=== PATIENT | male | born 1985 | race Two or more races ===

== ENCOUNTER 2018-05-14 12:16 | Emergency (ER) | payer SELFPAY ==
[~2018-05-14] VITALS: Ht 172.7 cm; Wt 93.0 kg
[2018-05-14] MEDS ORDERED: IV NORMAL SALINE 1000ML BAG 1,000 ML IV ONE (13:00)
[2018-05-14 13:19] LABS: CALCIUM 9.7 mg/dL (8.5-10.1); CREATININE 0.7 mg/dL (0.7-1.3); GFR 129.9; POTASSIUM 3.7 mmol/L (3.5-5.1)
[2018-05-14 13:27] LABS: ALBUMIN 4.6 g/dL (3.4-5.0); ALBUMIN/GLOBULIN RATIO 1.3 (1.0-1.7); TOTAL BILIRUBIN 1.2 mg/dL (0.2-1.0); TOTAL PROTEIN 8.2 g/dL (6.4-8.2)
[2018-05-14 13:32] LABS: BASO % 0 % (0-3); EOS % 0 % (0-3); HEMATOCRIT 49.4 % (39.0-53.0); HEMOGLOBIN 17.3 g/dL (13.0-17.5); LYMPH % 10 % (24-48); MEAN CORPUSCULAR HEMOGLOBIN 29 pg (25-35); MEAN CORPUSCULAR HGB CONC 35 g/dL (31-37); MEAN CORPUSCULAR VOLUME 83 fL (79-100); MONO # 0.8 x10^3/uL (0.0-1.1); MONO % 9 % (0-9); NEUT # 7.5 x10^3uL (1.8-7.7); NEUT % 80 % (31-73); PLATELET COUNT 221 x10^3/uL (140-400); RED BLOOD COUNT 5.98 x10^6/uL (4.30-5.70); RED CELL DISTRIBUTION WIDTH 12.6 % (11.5-14.5); WHITE BLOOD COUNT 9.4 x10^3/uL (4.0-11.0)
--- NOTE | 2018-05-14 14:27 | RAD ---
Testicular ultrasound History: RT GROIN PAIN/SWELLING. Comparison: None. Technique: Multiple grayscale, color flow Doppler and Doppler spectral analysis images of the scrotum are obtained. Findings: Right testicle measures 3.8 x 3.1 x 1.8 cm. Right testicle demonstrates normal parenchymal echogenicity. The right epididymis is unremarkable. Left testicle measures 4.4 x 2.4 x 2.3 cm. Left testicle demonstrates normal parenchymal echogenicity. The left epididymis is unremarkable. Small bilateral hydroceles. There is right varicocele. There is right scrotal skin thickening. There is subcutaneous edema. There is no definite subcutaneous air identified sonographically to suggest Dmitriy gangrene. Doppler imaging demonstrates normal flow to both testicles, without evidence of torsion. IMPRESSION: 1. Right scrotal skin thickening. 2. Right varicocele. 3. Small bilateral hydroceles. 4. No evidence of testicular mass or torsion. Electronically signed by: Brian Martinez MD (05/14/2018 2:23 PM) [id number]
[2018-05-14] MEDS ORDERED: DIPHTH,PERTUSS(ACELL),TET TOX 0.5 ML DISP.SYRIN. VAX IM ONE (14:45)
[2018-05-14] MEDS ORDERED: LIDOCAINE 1% PF 30 ML VIAL. INJ ONE (15:45)
[2018-05-14] MEDS ORDERED: CLIN150C14 PO (16:31)
[2018-05-14] MEDS ORDERED: METF500T16 PO (16:31)
[2018-05-14] MEDS ORDERED: HYDR-971 PO (16:31)
--- NOTE | 2018-05-14 16:32 | PHYS DOC ---
Past Medical History Past Medical History: No Pertinent History Additional Past Medical Histor: Possible diabetes? Additional Past Surgical Histo: L arm surgery Alcohol Use: Occasionally Drug Use: None Adult General Chief Complaint Chief Complaint: ABSCESS HPI HPI Patient is a 33 year old male with no significant medical history who presents today complaining of an abscess on the right groin for one week. Patient states he went to see his own primary care doctor and they checked his blood glucose which was 355, he states he has no previous history of diabetes as the reason he was sent to the ED. Patient denies any fever. Denies any nausea vomiting. Review of Systems Review of Systems Constitutional: Denies fever or chills [] Eyes: Denies change in visual acuity, redness, or eye pain [] HENT: Denies nasal congestion or sore throat [] Respiratory: Denies cough or shortness of breath [] Cardiovascular: No additional information not addressed in HPI [] GI: Denies abdominal pain, nausea, vomiting, bloody stools or diarrhea [] : Denies dysuria or hematuria [] Musculoskeletal: Denies back pain or joint pain [] Integument: Reports Right groin abscess Neurologic: Denies headache, focal weakness or sensory changes [] Endocrine: Reports high blood glucose All other systems were reviewed and found to be within normal limits, except as documented in this note. Current Medications Current Medications Current Medications Medications (Trade) Dose Ordered Sig/Mariella Start Time Stop Time Status Last Admin Dose Admin Ceftriaxone Sodium 50 ml @ 100 mls/hr 1X ONCE 05/14/18 14:45 05/14/18 15:14 DC 05/14/18 14:52 100 MLS/HR Diphtheria/ Tetanus/Acell Pertussis (Boostrix) 0.5 ml ONCE ONCE 05/14/18 14:45 05/14/18 14:46 DC 05/14/18 14:53 0.5 ML Lidocaine HCl (Xylocaine 1% Pf 30ml Vial) 30 ml 1X ONCE 05/14/18 15:45 05/14/18 15:46 DC Sodium Chloride 1,000 ml @ 1,000 mls/hr 1X ONCE 05/14/18 13:00 05/14/18 13:59 DC 05/14/18 13:08 1,000 MLS/HR Allergies Allergies Allergies Coded Allergies Type Severity Reaction Last Updated Verified No Known Drug Allergies 05/14/18 No Physical Exam Physical Exam Constitutional: Well developed, well nourished, no acute distress, non-toxic appearance. [] HENT: Normocephalic, atraumatic, bilateral external ears normal, oropharynx moist, no oral exudates, nose normal. [] Eyes: PERRLA, EOMI, conjunctiva normal, no discharge. [] Neck: Normal range of motion, no tenderness, supple, no stridor. [] Cardiovascular:Heart rate regular rhythm, no murmur [] Lungs & Thorax: Bilateral breath sounds clear to auscultation [] Abdomen: Bowel sounds normal, soft, no tenderness, no masses, no pulsatile masses. [] Skin: Warm, dry, right groin with an area of moderate induration approximately 4 x 3 cm with the cellulitis, the area is warm tender to touch and fluctuant. Back: No tenderness, no CVA tenderness. [] Extremities: No tenderness, no cyanosis, no clubbing, ROM intact, no edema. [] Neurologic: Alert and oriented X 3, normal motor function, normal sensory function, no focal deficits noted. [] Psychologic: Affect normal, judgement normal, mood normal. [] Current Patient Data Vital Signs Vital Signs Date Time Temp Pulse Resp B/P (MAP) Pulse Ox O2 Delivery O2 Flow Rate FiO2 05/14/18 14:53 87 14 129/71 (90) 99 Room Air 05/14/18 12:30 99.7 99.7 Lab Values Laboratory Tests Test 05/14/18 12:35 05/14/18 12:45 Glucose (Fingerstick) 271 mg/dL (70-99) H White Blood Count 9.4 x10^3/uL (4.0-11.0) Red Blood Count 5.98 x10^6/uL (4.30-5.70) H Hemoglobin 17.3 g/dL (13.0-17.5) Hematocrit 49.4 % (39.0-53.0) Mean Corpuscular Volume 83 fL (79-100) Mean Corpuscular Hemoglobin 29 pg (25-35) Mean Corpuscular Hemoglobin Concent 35 g/dL (31-37) Red Cell Distribution Width 12.6 % (11.5-14.5) Platelet Count 221 x10^3/uL (140-400) Neutrophils (%) (Auto) 80 % (31-73) H Lymphocytes (%) (Auto) 10 % (24-48) L Monocytes (%) (Auto) 9 % (0-9) Eosinophils (%) (Auto) 0 % (0-3) Basophils (%) (Auto) 0 % (0-3) Neutrophils # (Auto) 7.5 x10^3uL (1.8-7.7) Lymphocytes # (Auto) 1.0 x10^3/uL (1.0-4.8) Monocytes # (Auto) 0.8 x10^3/uL (0.0-1.1) Eosinophils # (Auto) 0.0 x10^3/uL (0.0-0.7) Basophils # (Auto) 0.0 x10^3/uL (0.0-0.2) Sodium Level 135 mmol/L (136-145) L Potassium Level 3.7 mmol/L (3.5-5.1) Chloride Level 97 mmol/L (98-107) L Carbon Dioxide Level 25 mmol/L (21-32) Anion Gap 13 (6-14) Blood Urea Nitrogen 11 mg/dL (8-26) Creatinine 0.7 mg/dL (0.7-1.3) Estimated GFR (Cockcroft-Gault) 129.9 BUN/Creatinine Ratio 16 (6-20) Glucose Level 285 mg/dL (70-99) H Calcium Level 9.7 mg/dL (8.5-10.1) Total Bilirubin 1.2 mg/dL (0.2-1.0) H Aspartate Amino Transferase (AST) 15 U/L (15-37) Alanine Aminotransferase (ALT) 35 U/L (16-63) Alkaline Phosphatase 146 U/L (46-116) H Total Protein 8.2 g/dL (6.4-8.2) Albumin 4.6 g/dL (3.4-5.0) Albumin/Globulin Ratio 1.3 (1.0-1.7) Laboratory Tests 05/14/18 12:45 Laboratory Tests 05/14/18 12:45 EKG EKG [] Radiology/Procedures Radiology/Procedures []PROCEDURE: TESTICULAR/SCROTUM Testicular ultrasound History: RT GROIN PAIN/SWELLING. Comparison: None. Technique: Multiple grayscale, color flow Doppler and Doppler spectral analysis images of the scrotum are obtained. Findings: Right testicle measures 3.8 x 3.1 x 1.8 cm. Right testicle demonstrates normal parenchymal echogenicity. The right epididymis is unremarkable. Left testicle measures 4.4 x 2.4 x 2.3 cm. Left testicle demonstrates normal parenchymal echogenicity. The left epididymis is unremarkable. Small bilateral hydroceles. There is right varicocele. There is right scrotal skin thickening. There is subcutaneous edema. There is no definite subcutaneous air identified sonographically to suggest Dmitriy gangrene. Doppler imaging demonstrates normal flow to both testicles, without evidence of torsion. IMPRESSION: 1. Right scrotal skin thickening. 2. Right varicocele. 3. Small bilateral hydroceles. 4. No evidence of testicular mass or torsion. Electronically signed by: Brian Tanner MD (05/14/2018 2:23 PM) [id number] DICTATED and SIGNED BY: BRIAN TANNER MD DATE: 05/14/18 1416 Indication: abscess right groin Procedure: The patient was positioned appropriately. Local anesthesia was 1% of lidocaine. An incision was then made over the apex of the lesion and moderate amount of bloody yellow purulent material was expressed. The drainage cavity was irrigated and packed with sterile gauze. The patients tetanus status updated as needed. The patient tolerated the procedure well. Complications: none. Course & Med Decision Making Course & Med Decision Making Pertinent Labs and Imaging studies reviewed. (See chart for details) This is a 33-year-old male patient with no significant medical history who presents today to be evaluated for an abscess on the right groin as well as high blood glucose. Patient has no history of diabetes. Was seen by the PCP and was noted to have a blood glucose of 355. Also had the abscess on the groin. Blood glucose 285 with normal anion gap. CBC with normal WBC. Scrotal/ testicular ultrasound was done, patient was noted to have right scrotal skin thickening, right varicocele, small bilateral hydrocele. I drained patient abscess and packed it as noted in procedures. Patient was given tetanus in the ED as well as Rocephin IV. He'll be discharged with metformin and clindamycin. Instructed to return to the ED in 2 days for wound check as well as dressing change. Dragon Disclaimer Dragon Disclaimer This electronic medical record was generated, in whole or in part, using a voice recognition dictation system. Departure Departure Impression: Primary Impression: Abscess of groin, right Additional Impressions: Cellulitis of groin, right Hydrocele Right varicocele Hyperglycemia Disposition: 01 HOME, SELF-CARE Condition: STABLE Referrals: NO PCP (PCP) Follow-up with emergency room in 2 days for wound check and packing removal Patient Instructions: Abscess, [id number], Cellulitis, [id number], Diabetes Meal Planning Guide, Diabetes and Exercise-SportsMed, Hyperglycemia, [id number] Additional Instructions: Your evaluated in the emergency room, your blood glucose is elevated, you likely have diabetes. We put you on antibiotics for URI abscess. Ensure you complete this antibiotics. Come back to the ED in 2 days for wound check and dressing change. Take the prescribed pain medicine as needed. Return to the emergency room at any point symptoms worsen. Scripts Metformin Hcl (METFORMIN HCL) 500 Mg Tablet 500 MG PO BIDWMEALS for ANTI-DIABETIC, #90 TAB 0 Refills Prov: CATHI CHURCH APRN 05/14/18 Clindamycin Hcl (CLINDAMYCIN HCL) 150 Mg Capsule 3 CAP PO TID, #90 CAP Prov: CATHI CHURCH APRN 05/14/18 Hydrocodone/Apap 5-325 (NORCO 5-325 TABLET) 1 Each Tablet 1 TAB PO Q6HRS, #12 TAB Prov: CATHI CHURCH APRN 05/14/18 Problem Qualifiers Additional Impressions: Hydrocele Hydrocele type: other Qualified Codes: N43.2 - Other hydrocele CATHI CHURCH APRN May 14, 2018 16:32
[2018-05-14 16:47] VITALS: BP 154/81
== END 2018-05-14 17:05 | disposition home or self-care (01) ==
LOC: ER 12:16
DX: L02.214 Cutaneous abscess of groin (principal); L03.314 Cellulitis of groin; N43.3 Hydrocele, unspecified; I86.1 Scrotal varices; E11.65 Type 2 diabetes mellitus with hyperglycemia
CPT/HCPCS: 10060; 36415; 76870; 80053; 82962; 85025; 90471; 90715; 96361; 96365; 99285; J0690; J7030